=== PATIENT | male | born 1960 | race Caucasian/White ===

== ENCOUNTER 2018-08-01 12:23 | Inpatient (IN) | payer MEDICAID ==
[~2018-08-01] VITALS: Ht 165.1 cm; Wt 81.8 kg
[2018-08-01] MEDS: normal saline 1000ml 1,000 ML IV SCH ×2 (00:35→14:04)
[~2018-08-01 12:23] MED LIST: AMLO10TA PO; ASPI-1265 PO; FLUO40CA10 PO; LEVO25TA2 PO; LISI40TA4 PO
[2018-08-01] MEDS ORDERED: ALBU18HF2 PO (12:55)
[2018-08-01] MEDS ORDERED: LEVO125T8 PO (12:55)
[2018-08-01] MEDS ORDERED: FLUO40CA PO (12:55)
[2018-08-01] MEDS ORDERED: METO50TA7 PO (12:55)
[2018-08-01] MEDS ORDERED: ATOR20TA66 PO (12:55)
[2018-08-01 13:03] LABS: BASOPHILS # (AUTO) 0.1 X10'3 (0-0.2); BASOPHILS % (AUTO) 1.2 % (0-1); EOSINOPHILS # (AUTO) 0.6 X10'3 (0-0.9); EOSINOPHILS % (AUTO) 8.9 % (0-6); HEMOGLOBIN 12.6 g/dl (14.0-17.9); LYMPHOCYTES # (AUTO) 1.5 X10'3 (1.1-4.8); LYMPHOCYTES % (AUTO) 22.1 % (21-51); MEAN CORPUSCULAR HEMOGLOBIN 30.9 PG (27.0-31.0); MEAN CORPUSCULAR HGB CONC 33.2 g/dL (33.0-36.5); MEAN CORPUSCULAR VOLUME 92.9 FL (78-98); MONOCYTES # (AUTO) 0.7 X10'3 (0-0.9); MONOCYTES % (AUTO) 10.5 % (2-12); NEUTROPHILS % (AUTO) 57.3 % (42-75); PLATELET COUNT 221 X10'3 (140-440); RED BLOOD COUNT 4.09 X10'6 (4.70-6.10); RED CELL DISTRIBUTION WIDTH 14.5 % (11.5-14.5); WHITE BLOOD COUNT 6.9 X10'3 (4.5-11.0)
[2018-08-01 13:17] LABS: ALANINE AMINOTRANSFERASE 33 U/L (12-78); ALBUMIN 2.9 G/DL (3.4-5.0); ALBUMIN/GLOBULIN RATIO 0.7 (1.1-1.5); ALKALINE PHOSPHATASE 115 IU/L (46-116); ANION GAP 4 (8-16); ASPARTATE AMINO TRANSFERASE 28 U/L (10-37); BILIRUBIN,TOTAL 0.3 MG/DL (0.1-1.0); BLOOD UREA NITROGEN 11 MG/DL (7-18); BUN/CREATININE RATIO 12.6 (5.4-32.0); CHLORIDE 108 MMOL/L (99-107); CREATININE 0.87 MG/DL (0.60-1.10); GLUCOSE 90 MG/DL (70-104); POTASSIUM 4.5 MMOL/L (3.5-5.1); SODIUM 141 MMOL/L (135-145); TOTAL CARBON DIOXIDE 29.1 MMOL/L (24-32); eGFR 90 ML/MIN
[2018-08-01 13:24] LABS: MAGNESIUM 1.9 MG/DL (1.5-2.4)
[2018-08-01] MEDS ORDERED: HYDROcodone/acetaminophen 5mg/325mg tablet PO PRN (13:40)
[2018-08-01] MEDS ORDERED: magnesium 2GM in 50ml NS 50 ML IV PRN (13:40)
[2018-08-01] MEDS ORDERED: potassium Cl 20 mEq SR tablet PO PRN ×2 (13:40)
[2018-08-01] MEDS: K and/or MAG REPLACEMENT MC SCH (13:40)
[2018-08-01] MEDS ORDERED: mag hydrox/Alum hydrox/simeth 30ml oral suspension PO PRN (13:40)
[2018-08-01] MEDS ORDERED: acetaminophen 325mg tablet PO PRN ×2 (13:40)
[2018-08-01] MEDS ORDERED: magnesium Cl slow-release 64mg tablet PO PRN (13:40)
[2018-08-01] MEDS ORDERED: ondansetron/PF 4mg/2ml inj IV PRN (13:40)
[2018-08-01] MEDS ORDERED: magnesium 4gm in 100ml NS 100 ML IV PRN (13:40)
[2018-08-01] MEDS ORDERED: magnesium hydroxide 30ml (MOM) UD suspension PO PRN (13:40)
[2018-08-01] MEDS ORDERED: potassium Cl 40MEQ/NS 500ml 500 ML IV PRN ×2 (13:40)
[2018-08-01 14:02] LABS: PARTIAL THROMBOPLASTIN TIME 26 SECONDS (22-32)
--- NOTE | 2018-08-01 14:25 | NUR ---
TURKEY SANDWICH, YOGURT AND APPLESAUCE PLACED AT BEDSIDE, STAT LUNCH TRAY ORDERED.
--- NOTE | 2018-08-01 14:47 | NUR ---
pt arrived to unit. c/o pain 09/22. no other needs at this time. VSS. Addendum: 08/01/18 at 1458 by Toni Medrano RN Amended: Links added.
[2018-08-01 15:00] VITALS: BP 151/93
[2018-08-01 16:03] LABS: HEMOGLOBIN A1C 5.9 % (4.5-6.2)
[2018-08-01 16:05] LABS: PHOSPHORUS 2.7 MG/DL (2.3-4.5)
[2018-08-01 16:37] VITALS: BP 162/90
[2018-08-01] MEDS ORDERED: non-formulary drug (Albuterol Sulfate (Ventolin Hfa) 2 PUFFS) PO PRN (17:25)
[2018-08-01] MEDS ORDERED: albuterol 2.5 MG/3 ML nebule NEB PRN (17:35)
--- NOTE | 2018-08-01 18:40 | NUR ---
Patient in room PCU 3026C. I have received report from MAY Meza RN and had the opportunity to ask questions and assume patient care.
[2018-08-01 19:00] VITALS: BP 147/62
[2018-08-01] MEDS ORDERED: iohexol 350MG/ML 100ml bottle IV ONE (20:11)
[2018-08-01 20:48] LABS: URINE AMPHETAMINE SCREEN NEGATIVE (Neg); URINE BARBITUATE SCREEN NEGATIVE (Neg); URINE BENZODIAZEPINES SCREEN NEGATIVE (Neg); URINE CANNABINOID SCREEN POSITIVE (Neg); URINE COCAINE SCREEN NEGATIVE (Neg); URINE METHADONE SCREEN NEGATIVE (Neg); URINE OPIATE SCREEN NEGATIVE (Neg); URINE PHENCYCLIDINE SCREEN NEGATIVE (Neg)
[2018-08-01] MEDS ORDERED: temazepam 15mg capsule PO PRN (21:00)
[2018-08-01 22:00] VITALS: BP_SYST 148; BP_SYST 156; BP_DIAS 112; BP_DIAS 97
[2018-08-01 23:00] VITALS: BP 156/97
[2018-08-02 03:00] VITALS: BP 165/99
[2018-08-02 05:08] LABS: HEMOGLOBIN 12.4 g/dl (14.0-17.9); MEAN CORPUSCULAR HEMOGLOBIN 31.1 PG (27.0-31.0); MEAN CORPUSCULAR HGB CONC 33.6 g/dL (33.0-36.5); MEAN CORPUSCULAR VOLUME 92.6 FL (78-98); MEAN PLATELET VOLUME 9.1 FL (7.4-10.4); PLATELET COUNT 227 X10'3 (140-440); RED BLOOD COUNT 3.99 X10'6 (4.70-6.10); RED CELL DISTRIBUTION WIDTH 14.2 % (11.5-14.5); WHITE BLOOD COUNT 7.6 X10'3 (4.5-11.0)
[2018-08-02 05:26] LABS: PARTIAL THROMBOPLASTIN TIME 26 SECONDS (22-32); PROTHROMBIN TIME 10.1 SECONDS (9.0-12.0)
[2018-08-02 05:28] LABS: ALBUMIN 2.7 G/DL (3.4-5.0); ANION GAP 8 (8-16); BLOOD UREA NITROGEN 12 MG/DL (7-18); BUN/CREATININE RATIO 14.6 (5.4-32.0); CALCIUM 8.8 MG/DL (8.5-10.1); CHLORIDE 108 MMOL/L (99-107); CHOL/HDL RATIO 2.4 (0.00-4.99); CHOLESTEROL 100 MG/DL (0-200); CREATININE 0.82 MG/DL (0.60-1.10); GLUCOSE 83 MG/DL (70-104); HDL CHOLESTEROL 41 MG/DL (35-60); LDL CHOLESTEROL 55 MG/DL (50-100); MAGNESIUM 1.7 MG/DL (1.5-2.4); POTASSIUM 4.1 MMOL/L (3.5-5.1); SODIUM 142 MMOL/L (135-145); TOTAL CARBON DIOXIDE 26.2 MMOL/L (24-32); TRIGLYCERIDES 37 MG/DL (20-135); eGFR > 90 ML/MIN
[2018-08-02 06:00] VITALS: BP 151/100
--- NOTE | 2018-08-02 06:00 | NUR ---
Assumed pt care
--- NOTE | 2018-08-02 06:09 | NUR ---
[place] documentation: I have reviewed and agree with all interventions, assessments performed and documented by Jagjit DIAMOND. [facility] Medication Administration: For this medication-pass time frame, all medication were reviewed, dispensed, administered and documented per hospital policy by Jagjit DIAMOND.
--- NOTE | 2018-08-02 06:25 | NUR ---
Problems reprioritized. Patient report given, questions answered & plan of care reviewed with DARA JAVIER.
[2018-08-02] MEDS: FLUoxetine 20mg capsule PO SCH (07:54)
[2018-08-02] MEDS: metoprolol succinate 25mg (24-HOUR) SR. Tablet PO SCH (07:54)
[2018-08-02] MEDS: levoTHYROXINE 125mcg tablet PO SCH (07:54)
[2018-08-02] MEDS: atorvastatin 20mg tablet PO SCH (07:55)
[2018-08-02] MEDS: K and/or MAG REPLACEMENT MC SCH (07:56)
[2018-08-02] MEDS ORDERED: non-formulary drug (Metoprolol Succinate* (Toprol Xl*) 1 TAB) PO SCH (08:00)
[2018-08-02] MEDS ORDERED: FLUOXETINE HCL PO SCH (08:00)
[2018-08-02 11:00] VITALS: BP 162/89
[2018-08-02] MEDS: normal saline 1000ml 1,000 ML IV SCH ×2 (11:30→19:37)
[2018-08-02 15:00] VITALS: BP 150/75
--- NOTE | 2018-08-02 17:41 | NUR ---
Dr Montoya call EEG negative pt will be D/C need call for ride home IVJ
[2018-08-02 19:00] VITALS: BP 148/82
[2018-08-02 23:00] VITALS: BP 141/87
[2018-08-02] MEDS ORDERED: morphine 2 MG/ML inj. syringe IV PRN (23:35)
[2018-08-02] MEDS: nitroGLYCERIN 0.4mg SUBLingual tab SL PRN ×2 (23:43→23:57)
[2018-08-03] VITALS (14 sets, daily range): BP systolic 84–161; BP diastolic 57–93
--- NOTE | 2018-08-03 00:25 | NUR ---
PATIENT COMPLAINING OF 8/[address] ASENCIO NOTIFIED. EKG DONE, NO CHANGES FROM PREVIOUS. SUBLINGUAL NITRO ADMINISTERED WITH NO EFFECT. MORHINE ADMINISTERED, PATIENT STATES PAIN DOWN TO 4/10 WITHIN A FEW MINUTES. TROPONIN SERIES ORDERED, FIRST ONE IS NEGATIVE.
[2018-08-03 05:55] LABS: HEMATOCRIT 38.4 % (42.0-52.0); HEMOGLOBIN 12.7 g/dl (14.0-17.9); MEAN CORPUSCULAR HEMOGLOBIN 30.6 PG (27.0-31.0); MEAN CORPUSCULAR HGB CONC 33.1 g/dL (33.0-36.5); MEAN CORPUSCULAR VOLUME 92.5 FL (78-98); MEAN PLATELET VOLUME 9.1 FL (7.4-10.4); PLATELET COUNT 231 X10'3 (140-440); RED BLOOD COUNT 4.16 X10'6 (4.70-6.10); RED CELL DISTRIBUTION WIDTH 14.1 % (11.5-14.5); WHITE BLOOD COUNT 7.8 X10'3 (4.5-11.0)
[2018-08-03 06:12] LABS: PARTIAL THROMBOPLASTIN TIME 25 SECONDS (22-32)
[2018-08-03 06:13] LABS: ALBUMIN 2.6 G/DL (3.4-5.0); ANION GAP 7 (8-16); BLOOD UREA NITROGEN 19 MG/DL (7-18); BUN/CREATININE RATIO 19.2 (5.4-32.0); CALCIUM 9.2 MG/DL (8.5-10.1); CHLORIDE 108 MMOL/L (99-107); CREATININE 0.99 MG/DL (0.60-1.10); GLUCOSE 90 MG/DL (70-104); MAGNESIUM 1.8 MG/DL (1.5-2.4); SODIUM 143 MMOL/L (135-145); TOTAL CARBON DIOXIDE 28.2 MMOL/L (24-32); TROPONIN I < 0.04 NG/ML (0.0-0.05); eGFR 78 ML/MIN
[2018-08-03] MEDS: levoTHYROXINE 125mcg tablet PO SCH (07:05)
[2018-08-03] MEDS: atorvastatin 20mg tablet PO SCH (07:38)
[2018-08-03] MEDS: FLUoxetine 20mg capsule PO SCH (07:38)
[2018-08-03] MEDS: metoprolol succinate 25mg (24-HOUR) SR. Tablet PO SCH (07:38)
[2018-08-03] MEDS: K and/or MAG REPLACEMENT MC SCH (07:40)
[2018-08-03] MEDS ORDERED: regadenoson 0.4mg/5ml syringe IV ONE ×2 (09:20→14:36)
[2018-08-03] MEDS ORDERED: metoprolol tartrate 1mg/ml inj IV PRN (09:20)
[2018-08-03] MEDS ORDERED: aminophylline 250mg/10ml inj. IV PRN (09:20)
[2018-08-03] MEDS ORDERED: nitroGLYCERIN 0.4mg SUBLingual tab SL PRN (09:20)
[2018-08-03] MEDS ORDERED: aminophylline inj. 10 ML IV ONE (14:36)
[2018-08-04 03:00] VITALS: BP 129/74
[2018-08-04 03:02] VITALS: BP 127/72
--- NOTE | 2018-08-04 05:56 | NUR ---
[place] documentation: I have reviewed and agree with all interventions, assessments performed and documented by DARA Galaviz. [facility] Medication Administration: For this medication-pass time frame, all medication were reviewed, dispensed, administered and documented per hospital policy by DARA Galaviz.
[2018-08-04 06:00] VITALS: BP 138/86
--- NOTE | 2018-08-04 06:00 | NUR ---
Assumed pt care.
[2018-08-04 06:29] LABS: HEMATOCRIT 38.9 % (42.0-52.0); HEMOGLOBIN 13.2 g/dl (14.0-17.9); MEAN CORPUSCULAR HEMOGLOBIN 30.8 PG (27.0-31.0); MEAN CORPUSCULAR HGB CONC 33.9 g/dL (33.0-36.5); MEAN CORPUSCULAR VOLUME 90.8 FL (78-98); MEAN PLATELET VOLUME 9.3 FL (7.4-10.4); PLATELET COUNT 242 X10'3 (140-440); RED BLOOD COUNT 4.28 X10'6 (4.70-6.10); RED CELL DISTRIBUTION WIDTH 13.8 % (11.5-14.5); WHITE BLOOD COUNT 8.6 X10'3 (4.5-11.0)
[2018-08-04 06:35] LABS: ALBUMIN 2.8 G/DL (3.4-5.0); ANION GAP 8 (8-16); BLOOD UREA NITROGEN 21 MG/DL (7-18); BUN/CREATININE RATIO 22.3 (5.4-32.0); CALCIUM 8.8 MG/DL (8.5-10.1); CHLORIDE 106 MMOL/L (99-107); CREATININE 0.94 MG/DL (0.60-1.10); GLUCOSE 85 MG/DL (70-104); MAGNESIUM 1.6 MG/DL (1.5-2.4); PARTIAL THROMBOPLASTIN TIME 26 SECONDS (22-32); POTASSIUM 4.4 MMOL/L (3.5-5.1); PROTHROMBIN TIME 10.1 SECONDS (9.0-12.0); SODIUM 140 MMOL/L (135-145); TOTAL CARBON DIOXIDE 26.2 MMOL/L (24-32); eGFR 83 ML/MIN
[2018-08-04] MEDS: atorvastatin 20mg tablet PO SCH (07:14)
[2018-08-04] MEDS: levoTHYROXINE 125mcg tablet PO SCH (07:14)
[2018-08-04] MEDS: metoprolol succinate 25mg (24-HOUR) SR. Tablet PO SCH (07:15)
[2018-08-04] MEDS: FLUoxetine 20mg capsule PO SCH (07:15)
[2018-08-04] MEDS: K and/or MAG REPLACEMENT MC SCH (07:16)
--- NOTE | 2018-08-04 09:00 | NUR ---
All D/C instruction given all question answered. Call friend for transportation IVJ
--- NOTE | 2018-08-04 11:06 | NUR ---
Patient have no transportation shoe parts caser Latesha call [facility] Patient stated hi has all medication at home. IVJ
--- NOTE | 2018-08-04 12:45 | NUR ---
Patient IV d/c instruction given patient go home by [facility]
== END 2018-08-04 12:40 | disposition home or self-care (01) | DRG 204 ==
LOC: ER 12:24 → ED HOLD 13:37 → PCU 3S 14:50
PROVIDERS: ADMIT Family Medicine; ATTEND Family Medicine
PROC: 4B02XSZ Measurement of Cardiac Pacemaker, External Approach (ICD-10-PCS; principal; 2018-08-01)
DX: R55 Syncope and collapse (principal); B19.20 Unspecified viral hepatitis C without hepatic coma; E03.9 Hypothyroidism, unspecified; E78.5 Hyperlipidemia, unspecified; F17.210 Nicotine dependence, cigarettes, uncomplicated; F32.9 Major depressive disorder, single episode, unspecified; Z66 Do not resuscitate; I10 Essential (primary) hypertension; I25.10 Atherosclerotic heart disease of native coronary artery without angina pectoris; J44.9 Chronic obstructive pulmonary disease, unspecified; I25.2 Old myocardial infarction; Z86.73 Personal history of transient ischemic attack (TIA), and cerebral infarction without residual deficits; Z95.0 Presence of cardiac pacemaker; Z88.5 Allergy status to narcotic agent; Z88.8 Allergy status to other drugs, medicaments and biological substances
CPT/HCPCS: 36415; 70450; 70496; 70498; 71045; 78452; 80048; 80053; 80061; 80305; 82948; 83036; 83735; 83880; 84100; 84443; 84484; 85025; 85027; 85610; 85730; 87070; 93005; 93017; 93306; 94760; 95816; 99285; A9500; G0378; J0280; J2270; J2405; J7030; Q9967

== ENCOUNTER 2018-11-22 19:15 | Emergency (ER) | payer MEDICAID ==
[~2018-11-22] VITALS: Ht 165.1 cm; Wt 74.2 kg
[~2018-11-22 19:15] MED LIST changes: +ALBU18HF2 PO; -AMLO10TA PO; -ASPI-1265 PO; +ATOR20TA66 PO; +FLUO40CA PO; -FLUO40CA10 PO; +LEVO125T8 PO; -LEVO25TA2 PO; -LISI40TA4 PO; +METO50TA7 PO
[2018-11-22] MEDS ORDERED: ipratropium/albuterol 3ml nebule NEB ONE (19:45)
[2018-11-22 19:57] LABS: BASOPHILS % (AUTO) 0.6 % (0-1); EOSINOPHILS # (AUTO) 0.3 X10'3 (0-0.9); EOSINOPHILS % (AUTO) 4.2 % (0-6); HEMATOCRIT 36.4 % (42.0-52.0); HEMOGLOBIN 12.1 g/dl (14.0-17.9); LYMPHOCYTES # (AUTO) 1.6 X10'3 (1.1-4.8); LYMPHOCYTES % (AUTO) 21.1 % (21-51); MEAN CORPUSCULAR HEMOGLOBIN 29.2 PG (27.0-31.0); MEAN CORPUSCULAR HGB CONC 33.2 g/dL (33.0-36.5); MEAN PLATELET VOLUME 8.7 FL (7.4-10.4); MONOCYTES # (AUTO) 0.8 X10'3 (0-0.9); NEUTROPHILS # (AUTO) 4.8 X10'3 (1.8-7.7); NEUTROPHILS % (AUTO) 64.1 % (42-75); PLATELET COUNT 244 X10'3 (140-440); RED BLOOD COUNT 4.14 X10'6 (4.70-6.10); RED CELL DISTRIBUTION WIDTH 16.3 % (11.5-14.5); WHITE BLOOD COUNT 7.5 X10'3 (4.5-11.0)
[2018-11-22 20:08] LABS: ALANINE AMINOTRANSFERASE 57 U/L (12-78); ALBUMIN 2.9 G/DL (3.4-5.0); ALBUMIN/GLOBULIN RATIO 0.7 (1.1-1.5); ALKALINE PHOSPHATASE 100 IU/L (46-116); ANION GAP 6 (8-16); ASPARTATE AMINO TRANSFERASE 36 U/L (10-37); BILIRUBIN,TOTAL 0.4 MG/DL (0.1-1.0); BLOOD UREA NITROGEN 11 MG/DL (7-18); BUN/CREATININE RATIO 11.1 (5.4-32.0); CALCIUM 8.5 MG/DL (8.5-10.1); CHLORIDE 107 MMOL/L (99-107); CREATININE 0.99 MG/DL (0.60-1.10); GLUCOSE 153 MG/DL (70-104); POTASSIUM 4.1 MMOL/L (3.5-5.1); SODIUM 141 MMOL/L (135-145); TOTAL CARBON DIOXIDE 27.7 MMOL/L (24-32); TOTAL PROTEIN 6.8 G/DL (6.4-8.2); eGFR 78 ML/MIN
[2018-11-22 20:09] LABS: PARTIAL THROMBOPLASTIN TIME 24 SECONDS (22-32)
[2018-11-22] MEDS ORDERED: predniSONE 20 mg tablet PO ONE (20:15)
[2018-11-22 20:18] VITALS: BP 173/95
[2018-11-22] MEDS ORDERED: AZIT-63 PO (20:28)
[2018-11-22] MEDS ORDERED: PRED20TA PO (20:28)
[2018-11-22] MEDS ORDERED: azithromycin 250mg tablet PO ONE (20:35)
== END 2018-11-22 21:17 | disposition home or self-care (01) ==
LOC: ER 19:23
DX: J44.9 Chronic obstructive pulmonary disease, unspecified (principal); I10 Essential (primary) hypertension; F12.90 Cannabis use, unspecified, uncomplicated; F15.90 Other stimulant use, unspecified, uncomplicated; Z95.0 Presence of cardiac pacemaker; Z88.5 Allergy status to narcotic agent; Z88.6 Allergy status to analgesic agent; Z88.8 Allergy status to other drugs, medicaments and biological substances; Z79.899 Other long term (current) drug therapy
CPT/HCPCS: 36415; 71045; 80053; 83880; 84484; 85025; 85610; 85730; 93005; 94640; 94760; 99284; J7512

== ENCOUNTER 2019-05-17 21:21 | Emergency (ER) | payer MEDICAID ==
[~2019-05-17] VITALS: Ht 165.1 cm; Wt 75.0 kg
[2019-05-17 21:52] LABS: BASOPHILS # (AUTO) 0.1 X10'3 (0-0.2); BASOPHILS % (AUTO) 1.1 % (0-1); EOSINOPHILS # (AUTO) 0.3 X10'3 (0-0.9); EOSINOPHILS % (AUTO) 3.6 % (0-6); HEMATOCRIT 47.7 % (42.0-52.0); HEMOGLOBIN 16.3 g/dl (14.0-17.9); LYMPHOCYTES # (AUTO) 2.3 X10'3 (1.1-4.8); LYMPHOCYTES % (AUTO) 26.6 % (21-51); MEAN CORPUSCULAR HEMOGLOBIN 31.6 PG (27.0-31.0); MEAN CORPUSCULAR HGB CONC 34.2 g/dL (33.0-36.5); MEAN CORPUSCULAR VOLUME 92.3 FL (78-98); MONOCYTES # (AUTO) 0.7 X10'3 (0-0.9); MONOCYTES % (AUTO) 7.7 % (2-12); NEUTROPHILS # (AUTO) 5.4 X10'3 (1.8-7.7); PLATELET COUNT 242 X10'3 (140-440); RED BLOOD COUNT 5.16 X10'6 (4.70-6.10); RED CELL DISTRIBUTION WIDTH 15.7 % (11.5-14.5); WHITE BLOOD COUNT 8.8 X10'3 (4.5-11.0)
[2019-05-17 22:08] LABS: ALANINE AMINOTRANSFERASE 81 U/L (12-78); ALBUMIN/GLOBULIN RATIO 0.8 (1.1-1.5); ALKALINE PHOSPHATASE 124 IU/L (46-116); ANION GAP 2 (8-16); ASPARTATE AMINO TRANSFERASE 69 U/L (10-37); BILIRUBIN,TOTAL 0.4 MG/DL (0.1-1.0); BLOOD UREA NITROGEN 8 MG/DL (7-18); BUN/CREATININE RATIO 6.1 (5.4-32.0); CALCIUM 9.1 MG/DL (8.5-10.1); CHLORIDE 103 MMOL/L (99-107); CREATININE 1.31 MG/DL (0.60-1.10); GLUCOSE 108 MG/DL (70-104); POTASSIUM 4.3 MMOL/L (3.5-5.1); SODIUM 138 MMOL/L (135-145); TOTAL CARBON DIOXIDE 33.3 MMOL/L (24-32); TOTAL PROTEIN 8.8 G/DL (6.4-8.2); eGFR 56 ML/MIN
[2019-05-17] MEDS ORDERED: PRED20TA PO (22:14)
[2019-05-17] MEDS ORDERED: AZIT-63 PO (22:14)
[2019-05-17] MEDS ORDERED: azithromycin 250mg tablet PO ONE (22:15)
[2019-05-17] MEDS ORDERED: predniSONE 20 mg tablet PO ONE (22:15)
[2019-05-17 22:33] VITALS: BP 141/95
== END 2019-05-17 22:30 | disposition home or self-care (01) ==
LOC: ER 21:21
DX: J44.1 Chronic obstructive pulmonary disease with (acute) exacerbation (principal); F12.90 Cannabis use, unspecified, uncomplicated; F15.90 Other stimulant use, unspecified, uncomplicated; I10 Essential (primary) hypertension; F17.200 Nicotine dependence, unspecified, uncomplicated; Z95.0 Presence of cardiac pacemaker; Z88.5 Allergy status to narcotic agent; Z88.6 Allergy status to analgesic agent; Z79.2 Long term (current) use of antibiotics; Z79.899 Other long term (current) drug therapy
CPT/HCPCS: 36415; 71045; 80053; 83880; 84484; 85025; 93005; 99284; J7512